=== PATIENT | female | born 1940 | race African-American/Black ===

== ENCOUNTER 2016-12-05 14:45 | Emergency (ER) | payer MEDICARE, OTHER ==
[~2016-12-05] VITALS: Ht 165.1 cm; Wt 78.0 kg
[2016-12-05] MEDS ORDERED: KETOROLAC 30MG/ML VIAL IM ONE (16:00)
[2016-12-05] MEDS ORDERED: METHOCARBAMOL 500MG TABLET PO ONE (16:00)
[2016-12-05 17:26] VITALS: BP 158/70
== END 2016-12-05 17:30 | disposition home or self-care (01) ==
LOC: ER 14:46
DX: S39.011A Strain of muscle, fascia and tendon of abdomen, initial encounter (principal); I10 Essential (primary) hypertension; M19.90 Unspecified osteoarthritis, unspecified site; Y93.89 Activity, other specified; Y99.9 Unspecified external cause status; Y92.89 Other specified places as the place of occurrence of the external cause
CPT/HCPCS: 72170; 96372; 99283; J1885

== ENCOUNTER 2019-07-02 08:48 | Emergency (ER) | payer OTHER ==
[~2019-07-02] VITALS: Ht 165.1 cm; Wt 73.0 kg
[2019-07-02 08:51] VITALS: BP 183/64
== END 2019-07-02 09:30 | disposition home or self-care (01) ==
LOC: ER 08:48
DX: H66.92 Otitis media, unspecified, left ear (principal); J06.9 Acute upper respiratory infection, unspecified
CPT/HCPCS: 99283

== ENCOUNTER 2020-06-23 09:54 | Inpatient (IN) | payer OTHER, MEDICAID ==
[~2020-06-23] VITALS: Ht 304.8 cm; Wt 67.7 kg
[2020-06-23] MEDS ORDERED: HYDROCODONE/ACETAMINOPHEN 5/325MG TABLET PO STA (10:23)
[2020-06-23 11:29] LABS: BASOPHILS % 1.1 % (0.0-2.0); EOSINOPHILS % 0.4 % (0.0-5.0); HEMATOCRIT. 40.6 % (36.0-48.0); HEMOGLOBIN. 13.7 g/dL (12.0-16.0); LYMPHOCYTES % 20.9 % (20.0-50.0); MEAN CORPUSCULAR HEMOGLOBIN 29.9 pg (28.0-32.0); MEAN CORPUSCULAR VOLUME 88.6 fL (81.0-99.0); MEAN PLATELET VOLUME 8.1 fl (7.4-10.4); MONOCYTES % 5.8 % (2.0-8.0); NEUTROPHILS % 71.8 % (40.0-76.0); PLATELET 208 x1000/uL (130-400); RED BLOOD CELL COUNT 4.59 mill/uL (4.2-5.4); RED CELL DISTRIBUTION WIDTH 14.4 % (11.6-14.6)
[2020-06-23 11:34] LABS: CHLORIDE 102 mEq/L (98-107)
[2020-06-23 11:37] LABS: INR 0.9; PROTHROMBIN TIME 9.9 sec (9.6-11.0)
[2020-06-23] MEDS ORDERED: ASPIRIN 325MG EC TABLET PO ONE (11:45)
[2020-06-23] MEDS ORDERED: POTASSIUM CHLORIDE 20MEQ TABLET SR PO ONE (11:45)
[2020-06-23 15:24] LABS: CLARITY URINE CLEAR (CLEAR); COLOR URINE YELLOW (YELLOW); KETONES URINE NEGATIVE (NEGATIVE); LEUKOCYTE ESTERASE URINE TRACE (NEGATIVE); NITRITE URINE NEGATIVE (NEGATIVE); OCCULT BLOOD URINE NEGATIVE (NEGATIVE); PROTEIN URINE NEGATIVE (NEGATIVE); SPECIFIC GRAVITY URINE 1.008 (1.005-1.030); UROBILINOGEN URINE 0.2 E.U./dL (0.2-1.0)
[2020-06-23 15:45] VITALS: BP 170/54
[2020-06-23 16:06] VITALS: BP 170/54
[2020-06-23] MEDS ORDERED: IPRATROPIUM/ALBUTEROL 0.5-3(2.5)MG/3ML NEB HHN PRN (16:45)
[2020-06-23] MEDS ORDERED: ENALAPRIL 1.25MG/ML VIAL 1ML IV PRN (16:45)
[2020-06-23] MEDS ORDERED: DIPHENHYDRAMINE 50MG/ML VIAL IV PRN (16:45)
[2020-06-23] MEDS ORDERED: CLONIDINE 0.1MG TABLET PO PRN (16:45)
[2020-06-23] MEDS ORDERED: ONDANSETRON HCL 4MG/2ML INJ IV PRN (16:45)
[2020-06-23] MEDS ORDERED: AMLO10TA80 MT (16:47)
[2020-06-23] MEDS ORDERED: METO-539 MT (16:48)
[2020-06-23] MEDS ORDERED: LISI-604 MT (16:48)
[2020-06-23] MEDS ORDERED: DICL50TA9 MT (16:49)
[2020-06-23] MEDS: ENOXAPARIN 40MG/0.4ML SYR SUBCUT SCH (17:45)
[2020-06-23 20:00] VITALS: BP 137/47
[2020-06-23] MEDS ORDERED: PNEUMOCOCCAL 23-VAL P-SAC VAC 0.5 ML IM ONE (20:00)
[2020-06-23] MEDS: ACETAMINOPHEN 325MG TABLET PO PRN (20:32)
[2020-06-23] MEDS ORDERED: METOPROLOL TARTRATE 50MG TABLET PO SCH (21:00)
[2020-06-24] VITALS (7 sets, daily range): BP systolic 113–173; BP diastolic 44–52
[2020-06-24] MEDS: BLOOD SUGAR DIAGNOSTIC STRIP TEST SCH ×4 (06:20→20:38)
[2020-06-24] MEDS: LISINOPRIL 20MG TABLET PO SCH (08:20)
[2020-06-24] MEDS: ACETAMINOPHEN 325MG TABLET PO PRN ×2 (08:20→20:42)
[2020-06-24] MEDS: AMLODIPINE 10MG TABLET PO SCH (08:20)
[2020-06-24 08:49] LABS: BASOPHILS % 1.3 % (0.0-2.0); EOSINOPHILS % 1.5 % (0.0-5.0); HEMATOCRIT. 39.6 % (36.0-48.0); HEMOGLOBIN. 13.6 g/dL (12.0-16.0); LYMPHOCYTES % 33.5 % (20.0-50.0); MEAN CORPUSCULAR HEMOGLOBIN 30.2 pg (28.0-32.0); MEAN CORPUSCULAR VOLUME 88.3 fL (81.0-99.0); MEAN PLATELET VOLUME 8.4 fl (7.4-10.4); MONOCYTES % 5.7 % (2.0-8.0); PLATELET 198 x1000/uL (130-400); RED BLOOD CELL COUNT 4.49 mill/uL (4.2-5.4); RED CELL DISTRIBUTION WIDTH 14.7 % (11.6-14.6)
[2020-06-24 08:58] LABS: CHLORIDE 104 mEq/L (98-107)
[2020-06-24 09:04] LABS: LDL CHOLESTEROL 120 mg/dL (5-100)
[2020-06-24 09:06] LABS: HDL CHOLESTEROL 50 mg/dL (40-59)
[2020-06-24] MEDS ORDERED: REGADENOSON 0.4 MG/5 ML IV NR (11:45)
[2020-06-24] MEDS: ASPIRIN 81MG TABLET PO SCH (12:20)
[2020-06-24] MEDS: ENOXAPARIN 40MG/0.4ML SYR SUBCUT SCH (17:37)
[2020-06-24] MEDS ORDERED: ASPI-1160 PO (19:24)
[2020-06-24] MEDS ORDERED: ATOR20TA PO (19:24)
[2020-06-24 20:01] LABS: ETHANOL BLOOD < 10 mg/dL
[2020-06-24 20:04] LABS: LDL CHOLESTEROL 142 mg/dL (5-100)
[2020-06-24 20:06] LABS: HDL CHOLESTEROL 56 mg/dL (40-59); T4 FREE 1.37 ng/dL (0.76-1.46)
[2020-06-24 20:17] LABS: FOLIC ACID (FOLATE) SERUM 18.2 ng/mL (>5.38)
[2020-06-24] MEDS ORDERED: ATORVASTATIN CALCIUM 20MG TABLET PO SCH (21:00)
[2020-06-24 22:37] LABS: *AMPHETAMINES SCREEN URINE NEGATIVE (NEGATIVE); *BARBITURATES SCREEN URINE NEGATIVE (NEGATIVE); *BENZODIAZEPINES SCREEN URINE NEGATIVE (NEGATIVE)
[2020-06-24 22:38] LABS: *COCAINE SCREEN URINE NEGATIVE (NEGATIVE); CANNABINOID URINE SCREEN NEGATIVE (NEGATIVE); METHADONE URINE SCREEN NEGATIVE (NEGATIVE); OPIATES URINE SCREEN NEGATIVE (NEGATIVE); PHENCYCLIDINE URINE SCREEN NEGATIVE (NEGATIVE)
[2020-06-25] VITALS: BP 119/50
[2020-06-25 03:53] VITALS: BP 133/43
[2020-06-25 04:30] VITALS: BP 133/43
[2020-06-25] MEDS: BLOOD SUGAR DIAGNOSTIC STRIP TEST SCH (06:48)
[2020-06-25 08:00] VITALS: BP 135/65
[2020-06-25] MEDS: AMLODIPINE 10MG TABLET PO SCH (08:17)
[2020-06-25] MEDS: ASPIRIN 81MG TABLET PO SCH (08:17)
[2020-06-25] MEDS: LISINOPRIL 20MG TABLET PO SCH (08:17)
== END 2020-06-25 08:41 | disposition home or self-care (01) | DRG 563 ==
LOC: ER 09:54 → 6WST 13:01 → EDBEDREQ 13:04 → ENRESERV 14:13
PROVIDERS: ADMIT Internal Medicine; ATTEND Internal Medicine
DX: S43.431A Superior glenoid labrum lesion of right shoulder, initial encounter (principal); M25.411 Effusion, right shoulder; S43.491A Other sprain of right shoulder joint, initial encounter; E78.5 Hyperlipidemia, unspecified; I10 Essential (primary) hypertension; I16.0 Hypertensive urgency; E78.00 Pure hypercholesterolemia, unspecified; E11.9 Type 2 diabetes mellitus without complications; C50.919 Malignant neoplasm of unspecified site of unspecified female breast; M19.011 Primary osteoarthritis, right shoulder; X58.XXXA Exposure to other specified factors, initial encounter; Y93.89 Activity, other specified; Y92.89 Other specified places as the place of occurrence of the external cause; Z90.10 Acquired absence of unspecified breast and nipple; Z92.3 Personal history of irradiation; Y99.8 Other external cause status; Z79.899 Other long term (current) drug therapy
CPT/HCPCS: 36415; 70551; 71045; 73030; 73221; 80053; 80061; 80305; 80320; 81003; 82607; 82746; 82962; 83036; 84439; 84443; 84481; 84484; 85025; 90732; 93005; 93306; 93880; 99291; J1650; G0480